=== PATIENT | female | born 1945 | race Caucasian/White ===

== ENCOUNTER 2019-01-27 18:20 | Inpatient (IN) | payer OTHER ==
[~2019-01-27] VITALS: Ht 157.5 cm; Wt 68.0 kg
[2019-01-27 19:03] VITALS: Ht 157.5 cm; Wt 68.0 kg
[2019-01-27 20:27] LABS: ALBUMIN 3.7 g/dL (3.4-5.0); ALKALINE PHOSPHATASE 109 U/L (46-116); ALT/SGPT 35 U/L (14-59); AST/SGOT 16 U/L (15-37); BILIRUBIN TOTAL 0.87 mg/dL (0.20-1.00); CALCIUM 10.2 mg/dL (8.5-10.1); CARBON DIOXIDE 18.7 mmol/L (21-32); CHLORIDE SERUM 95 mmol/L (98-107); CREATININE SERUM 2.5 mg/dL (0.6-1.0); POTASSIUM SERUM 5.2 mmol/L (3.5-5.1); SODIUM SERUM 137 mmol/L (136-145); TOTAL PROTEIN, SERUM 7.8 g/dL (6.4-8.2)
[2019-01-27 21:04] LABS: GLUCOSE SERUM 1287 mg/dL (74-106)
[2019-01-27 21:12] LABS: BASOPHIL % 0 % (0-2); PLATELET COUNT 77 x10^3mcL (130-400)
[2019-01-27 21:47] LABS: UA SPECIFIC GRAVITY <=1.005 (1.005-1.035); microscopic required? YES; urine erythrocyte 2+ (NEGATIVE)
[2019-01-28] VITALS (12 sets, daily range): BP systolic 94–132; BP diastolic 48–74
[2019-01-28 01:09] LABS: CALCIUM 9.1 mg/dL (8.5-10.1); CARBON DIOXIDE 15.6 mmol/L (21-32); CHLORIDE SERUM 108 mmol/L (98-107); CREATININE SERUM 1.9 mg/dL (0.6-1.0); POTASSIUM SERUM 4.8 mmol/L (3.5-5.1); SODIUM SERUM 145 mmol/L (136-145)
[2019-01-28 01:21] LABS: GLUCOSE SERUM 745 mg/dL (74-106)
[2019-01-28 04:33] LABS: CHLORIDE SERUM 112 mmol/L (98-107); POTASSIUM SERUM 4.3 mmol/L (3.5-5.1); SODIUM SERUM 149 mmol/L (136-145)
[2019-01-28 04:34] LABS: CALCIUM 8.8 mg/dL (8.5-10.1); CARBON DIOXIDE 16.4 mmol/L (21-32); CREATININE SERUM 1.7 mg/dL (0.6-1.0); MAGNESIUM 2.8 mg/dL (1.8-2.4); PHOSPHOROUS 3.8 mg/dL (2.5-4.9)
[2019-01-28 04:35] LABS: GLUCOSE SERUM 655 mg/dL (74-106)
[2019-01-28 04:49] LABS: CHOLESTEROL/HDL RATIO 4.7
[2019-01-28 07:49] LABS: CALCIUM 8.9 mg/dL (8.5-10.1); CHLORIDE SERUM 118 mmol/L (98-107); CREATININE SERUM 1.6 mg/dL (0.6-1.0); GLUCOSE SERUM 413 mg/dL (74-106); MAGNESIUM 2.9 mg/dL (1.8-2.4); PHOSPHOROUS 3.1 mg/dL (2.5-4.9); POTASSIUM SERUM 3.9 mmol/L (3.5-5.1); SODIUM SERUM 153 mmol/L (136-145)
[2019-01-28 08:52] LABS: RED CELL DISTRIBUTION WIDTH 13.7 % (11.5-14.5)
[2019-01-28 08:53] LABS: PLATELET COUNT 58 x10^3mcL (130-400)
[2019-01-28 11:53] LABS: BAND NEUTROPHIL 2 % (0-10); BASOPHIL 0 % (0-2); MONOCYTE 4 % (0-7); SEGMENTED NEUTROPHILS 80 % (37-75)
[2019-01-28 11:54] LABS: PLATELET MORPHOLOGY PLATELETS DECREASED
[2019-01-28 12:05] LABS: CALCIUM 8.3 mg/dL (8.5-10.1); CARBON DIOXIDE 24.3 mmol/L (21-32); CHLORIDE SERUM 123 mmol/L (98-107); CREATININE SERUM 1.3 mg/dL (0.6-1.0); GLUCOSE SERUM 194 mg/dL (74-106); MAGNESIUM 2.5 mg/dL (1.8-2.4); PHOSPHOROUS 2.3 mg/dL (2.5-4.9); POTASSIUM SERUM 3.9 mmol/L (3.5-5.1); SODIUM SERUM 157 mmol/L (136-145)
[2019-01-29 06:11] VITALS: BP 122/68
[2019-01-29 07:07] LABS: BASOPHIL % 0.2 % (0-2); RED CELL DISTRIBUTION WIDTH 13.6 % (11.5-14.5)
[2019-01-29 07:29] LABS: PLATELET COUNT 21 x10^3mcL (130-400)
[2019-01-29 07:54] LABS: CALCIUM 8.2 mg/dL (8.5-10.1); CARBON DIOXIDE 25.6 mmol/L (21-32); CHLORIDE SERUM 124 mmol/L (98-107); CREATININE SERUM 0.9 mg/dL (0.6-1.0); GLUCOSE SERUM 213 mg/dL (74-106); POTASSIUM SERUM 4.6 mmol/L (3.5-5.1); SODIUM SERUM 157 mmol/L (136-145)
[2019-01-29 09:41] VITALS: BP 91/67
[2019-01-29 13:48] VITALS: BP 124/74
[2019-01-29 16:27] VITALS: BP 121/53
[2019-01-29 20:31] VITALS: BP 109/55
[2019-01-30 05:16] VITALS: BP 114/53
[2019-01-30 07:25] LABS: BASOPHIL % 0.1 % (0-2); RED CELL DISTRIBUTION WIDTH 13.3 % (11.5-14.5)
[2019-01-30 08:18] VITALS: BP 118/67
[2019-01-30 08:53] VITALS: BP 118/67
[2019-01-30 11:12] LABS: PLATELET COUNT 13 x10^3mcL (130-400)
[2019-01-30 11:16] LABS: CALCIUM 7.7 mg/dL (8.5-10.1); CARBON DIOXIDE 26.9 mmol/L (21-32); CHLORIDE SERUM 114 mmol/L (98-107); CREATININE SERUM 0.7 mg/dL (0.6-1.0); GLUCOSE SERUM 183 mg/dL (74-106); POTASSIUM SERUM 3.5 mmol/L (3.5-5.1); SODIUM SERUM 146 mmol/L (136-145)
[2019-01-30 13:08] VITALS: BP 105/61
[2019-01-30 16:27] VITALS: BP 105/56
[2019-01-30 19:10] VITALS: BP 114/59
[2019-01-31] VITALS (8 sets, daily range): BP systolic 101–151; BP diastolic 46–76
[2019-01-31 06:19] LABS: BASOPHIL % 0.2 % (0-2); RED CELL DISTRIBUTION WIDTH 13.6 % (11.5-14.5)
[2019-01-31 06:55] LABS: CALCIUM 7.8 mg/dL (8.5-10.1); CARBON DIOXIDE 26.6 mmol/L (21-32); CHLORIDE SERUM 111 mmol/L (98-107); CREATININE SERUM 0.7 mg/dL (0.6-1.0); GLUCOSE SERUM 213 mg/dL (74-106); POTASSIUM SERUM 3.7 mmol/L (3.5-5.1); SODIUM SERUM 143 mmol/L (136-145)
[2019-01-31 08:59] LABS: PLATELET COUNT 17 x10^3mcL (130-400)
[2019-02-01 05:29] VITALS: BP 124/73
[2019-02-01 06:24] LABS: RED CELL DISTRIBUTION WIDTH 13.3 % (11.5-14.5)
[2019-02-01 06:29] LABS: PLATELET COUNT 88 x10^3mcL (130-400)
[2019-02-01 09:04] VITALS: BP 133/76
[2019-02-01 12:30] LABS: BAND NEUTROPHIL 1 % (0-10); BASOPHIL 0 % (0-2); MONOCYTE 2 % (0-7); SEGMENTED NEUTROPHILS 77 % (37-75)
[2019-02-01 12:31] LABS: PLATELET MORPHOLOGY PLATELETS DECREASED
[2019-02-01 13:20] VITALS: BP 140/61
[2019-02-01 14:51] VITALS: BP 140/61
== END 2019-02-01 15:05 | disposition home or self-care (01) | DRG 813 ==
LOC: ED 18:20 → DU 21:36 → IC 21:36 → DU 22:50 → IC 01-28 02:38 → DU 01-28 16:25
PROVIDERS: Emergency Medicine; Internal Medicine Hematology; ADMIT Internal Medicine Pulmonary Disease
PROC: 07DR3ZX Extraction of Iliac Bone Marrow, Percutaneous Approach, Diagnostic (ICD-10-PCS; principal; 2019-01-31)
DX: D69.3 Immune thrombocytopenic purpura (principal); E11.10 Type 2 diabetes mellitus with ketoacidosis without coma; N17.0 Acute kidney failure with tubular necrosis; E86.0 Dehydration; K12.1 Other forms of stomatitis; Z79.4 Long term (current) use of insulin; Z68.27 Body mass index [BMI] 27.0-27.9, adult; Z79.84 Long term (current) use of oral hypoglycemic drugs
CPT/HCPCS: 82962; 85060; 88344; 90658; 90732; G0378; J0696; J1450; J1561; J1815; J2001; J2250; J2405; J3010; J7030; J7050; J7060; P9035; Q0092